=== PATIENT | female | born 1985 | race Caucasian/White ===

== ENCOUNTER 2017-07-08 15:23 | Emergency (ER) | payer OTHER ==
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
[2017-07-08] MEDS ORDERED: METHOCARBAMOL 500 MG TABLET PO STA (15:53)
[2017-07-08] MEDS ORDERED: ACETAMINOPHEN 325 MG TABLET PO STA (15:53)
[2017-07-08] MEDS ORDERED: traMADol 50 MG TABLET PO STA (15:53)
[2017-07-08 16:33] VITALS: BP 123/74
== END 2017-07-08 16:31 | disposition home or self-care (01) ==
LOC: ED 15:23
DX: S76.112A Strain of left quadriceps muscle, fascia and tendon, initial encounter (principal); M23.92 Unspecified internal derangement of left knee; W18.09XA Striking against other object with subsequent fall, initial encounter; Y92.009 Unspecified place in unspecified non-institutional (private) residence as the place of occurrence of the external cause
CPT/HCPCS: 29530; 99283; A9270

== ENCOUNTER 2017-07-13 16:33 | Outpatient (CLI) | payer OTHER ==
--- NOTE | 2017-07-14 12:34 | MRI Report ---
EXAM: LEFT KNEE MRI WITHOUT CONTRAST EXAM DATE: 07/13/2017 05:18 PM. CLINICAL HISTORY: Patient reports hyperextended left knee 2 weeks ago, severe pain not subsiding. His tory of meniscal tear and prior ACL tear. COMPARISON: None available. TECHNIQUE: Multiplanar, multisequence T1-weighted and fluid-sensitive sequences of the knee without c ontrast. Other: None. FINDINGS: Bones: No fractures or subluxations. No marrow edema. No bone lesions. Articular Cartilage: Unremarkable. Medial Meniscus: Abnormal contour along the posterior-inferior margin posterior horn, likely postsurg ical. No fluid-filled tear. Lateral Meniscus: Mild blunting of the free edge body and anterior horn. No discrete fluid-filled tea r. Cruciate Ligaments: Mild fluid sensitive hyperintense signal in the intact anterior cruciate ligament . Posterior cruciate ligament is intact. Collateral Ligaments: The medial collateral and lateral collateral ligamentous structures are intact. Tendons: Minimal fluid sensitive hyperintense signal in the medial aspect distal insertion patellar t endon with mild adjacent edema. Quadriceps, semimembranosus, and popliteus tendons are unremarkable. Musculature: No edema or fatty atrophy. Other: Minimal joint effusion. No popliteal cyst. No loose bodies. The medial and lateral retinacula are intact. Mild subcutaneous edema over the anterior aspect distal patellar tendon. Mild edema in t he distal aspect Hoffa's fat pad. IMPRESSION: 1. Mild patellar tendinopathy distally. 2. Mild fraying anterior horn and body lateral meniscus without discrete tear. 3. Likely postsurgical changes posterior horn medial meniscus. 4. Grade 1 sprain anterior cruciate ligament, likely subacute to chronic. 5. Minimal joint effusion. [facility] MUSCULOSKELET[facility] RADIOLOGY SECTION Referring Provider Line: [phone] SITE ID: [id number]
== END 2017-07-13 16:34 | disposition home or self-care (01) ==
LOC: DI 16:33
PROVIDERS: ATTEND Family Medicine
DX: M67.864 Other specified disorders of tendon, left knee (principal); S83.512A Sprain of anterior cruciate ligament of left knee, initial encounter; M25.462 Effusion, left knee